=== PATIENT | female | born 1990 | race Caucasian/White ===

== ENCOUNTER 2024-11-15 08:57 | Inpatient (IN) ==
[2024-11-15] MEDS: LACTATED RINGER'S 1,000 ML IV PRN (09:15)
[2024-11-15 09:29] LABS: Hematocrit (blood only) 32.8 % (37.0-47.0); Hemoglobin 11.4 g/dl (12.0-16.0); Mean Corpuscular Hemoglobin 32.0 pg (25.0-34.0); Mean Corpuscular Volume 92.1 fL (80.0-100.0); Platelet Count 244 K/uL (130-400); RDW Standard Deviation 43.1 fL (36.4-46.3); Red Blood Count 3.56 M/uL (4.20-5.40); White Blood Count 11.25 K/ul (4.8-10.8)
[2024-11-15] MEDS: OXYTOCIN 30 UNITS/NSS 30 UNITS/500 ML BAG IV PRN (09:55)
[2024-11-15] MEDS: LIDOCAINE 1% LOCAL 20 ML VIAL INFIL PRN (10:02)
[2024-11-15] MEDS: BUPIVACAINE 0.25% PF 30 ML VIAL ONE (10:07)
[2024-11-15] MEDS: SODIUM CHLORIDE 0.9% PF INJ 10 ML VIAL ONE (10:08)
[2024-11-15] MEDS: fentANYL 2 MCG/ML BUPIVacaine 0.125%-NSS 100ML BAG ONE (10:08)
[2024-11-15] MEDS: LIDOCAINE 2%/EPINEPHRINE 1:200,000 20 ML PF ONE (10:08)
--- NOTE | 2024-11-15 10:18 | Delivery Summary ---
Vaginal Delivery Summary Date of Service November 15, 2024 Vaginal Delivery Summary () live male NARENDRA with delayed cord clamping and Apgars 8/9 weight 8 lbs. 13 oz. cord blood obtained followed by spontaneous delivery of intact placenta. Small first degree vaginal tear repaired with 3/0 Vicryl suture and 1% Lidocaine local given. QBL 55 mi. Final sponge, needle and instrument counts are correct. Mom and baby stable.
[2024-11-15] MEDS: IBUPROFEN 600 MG TAB PO ONE (10:32)
[2024-11-15] MEDS ORDERED: OXYTOCIN 30 UNITS/NSS 30 UNITS/500 ML BAG IV PRN (10:56)
[2024-11-15] MEDS ORDERED: ACETAMINOPHEN 325 MG TAB PO PRN (10:56)
[2024-11-15] MEDS ORDERED: HYDROCORTISONE ACETATE 25 MG SUPP PR PRN (10:56)
[2024-11-15] MEDS: BENZOCAINE 20% SPRY 85 APPLN/85 GM CAN EXT PRN (15:08)
[2024-11-15] MEDS: DIPHTHER/TETAN/PERTUS Vaccine (Tdap, Adol/Adult) 0.5mL IM ONE (19:13)
[2024-11-15] MEDS: DOCUSATE SODIUM 100 MG CAP PO SCH (21:09)
[2024-11-16] MEDS: IBUPROFEN 600 MG TAB PO PRN (01:05)
[2024-11-16 07:41] LABS: Hematocrit (blood only) 31.4 % (37.0-47.0); Hemoglobin 10.7 g/dl (12.0-16.0); Mean Corpuscular Hemoglobin 32.3 pg (25.0-34.0); Mean Corpuscular Volume 94.9 fL (80.0-100.0); Platelet Count 212 K/uL (130-400); RDW Standard Deviation 44.8 fL (36.4-46.3); Red Blood Count 3.31 M/uL (4.20-5.40); White Blood Count 12.26 K/ul (4.8-10.8)
--- NOTE | 2024-11-16 08:40 | Obstetrical Progress Note ---
Date of Service November 16, 2024 Assessment & Plan Admission and Anticipated Discharge Date Admission Date: November 15, 2024 Subjective Patient is seen and examined. She feels well, no complaints. Ambulating without dizziness Voiding without difficulty Tolerating regular diet with out N&V Bleeding is minimal No fever/ chills/ CP/ SOB/ N&V/ Leg pain Breast feeding without problems Vital Signs Temp Pulse Resp BP Pulse Ox O2 Del Method 11/16/24 04:18 36.6 C 74 16 124/78 98 Room Air 11/15/24 23:14 36.7 C 69 18 127/82 96 Room Air Lab Results 11/15/24 11/16/24 Range/Units 09:16 07:03 WBC 11.25 H 12.26 H (4.8-10.8) K/ul RBC 3.56 L 3.31 L (4.20-5.40) M/uL Hgb 11.4 L 10.7 L (12.0-16.0) g/dl Hct 32.8 L 31.4 L (37.0-47.0) % MCV 92.1 94.9 (80.0-100.0) fL MCH 32.0 32.3 (25.0-34.0) pg MCHC 34.8 34.1 (32.0-36.0) g/dL RDW Std Deviation 43.1 44.8 (36.4-46.3) fL RDW Coeff of Carissa 12.8 13.1 (11.5-14.5) % Plt Count 244 212 (130-400) K/uL MPV 9.7 10.1 (9.4-12.4) fL Treponema pallidum Ab Negative (Negative) Blood Type A Positive Antibody Screen NEGATIVE PE: General: Alert, orientedx3, NAD Abd: soft, NT, fundus firm, below Umbilicus Perineum intact, Lochia rubra minimal Ext; NT, no edema AP: 34 yo s/p / , ppd# 1 VSS Afebrile doing well Continue routine care All questions were answered Desires to be discharged on ppd# 2. D/C home tomorrow Results & Data Vital Signs (Past 12 Hours) Vital Signs Temp Pulse Resp BP Pulse Ox O2 Del Method 11/16/24 04:18 36.6 C 74 16 124/78 98 Room Air 11/15/24 23:14 36.7 C 69 18 127/82 96 Room Air
[2024-11-16] MEDS ORDERED: NON-FORMULARY MEDICATION (Prenatal Vit No.130-Iron-Folic [Prenatal Vitamin] 27 mg iron- 80 PO SCH (09:00)
[2024-11-16] MEDS ORDERED: NON-FORMULARY MEDICATION (Ferrous Sulfate [Iron (Ferrous Sulfate)] 325 mg (65 mg iron) Tab PO SCH (09:00)
[2024-11-16] MEDS: FERROUS SULFATE 325 MG TAB PO SCH (09:20)
[2024-11-16] MEDS: PRENATAL VITAMIN 1 TAB PO SCH (09:20)
[2024-11-17 03:49] VITALS: TEMP 98.1
[2024-11-17 07:29] VITALS: RESP 18; O2SAT 96
[2024-11-17 07:57] LABS: Hematocrit (blood only) 35.8 % (37.0-47.0); Hemoglobin 12.4 g/dl (12.0-16.0)
--- NOTE | 2024-11-17 08:44 | Obstetrical Progress Note ---
Date of Service November 17, 2024 Assessment & Plan Admission and Anticipated Discharge Date Admission Date: November 15, 2024 Subjective Patient is seen and examined. She feels well, no complaints. Ambulating without dizziness Voiding without difficulty Tolerating regular diet with out N&V Bleeding is minimal No fever/ chills/ CP/ SOB/ N&V/ Leg pain Breast feeding without problems Vital Signs Temp Pulse Resp BP BP Pulse Ox O2 Del Method 11/17/24 07:28 36.7 C 76 18 124/82 96 Room Air 11/17/24 03:40 36.7 C 63 16 108/70 95 Room Air 11/16/24 19:18 36.5 C 86 18 118/76 96 Room Air 11/16/24 16:30 36.9 C 88 16 133/88 98 Room Air 11/16/24 09:00 36.8 C 77 18 127/88 99 Room Air Vital Signs Temp Pulse Resp BP BP Pulse Ox O2 Del Method 11/17/24 07:28 36.7 C 76 18 124/82 96 Room Air 11/17/24 03:40 36.7 C 63 16 108/70 95 Room Air Lab Results 11/15/24 11/16/24 11/17/24 Range/Units 09:16 07:03 07:18 WBC 11.25 H 12.26 H (4.8-10.8) K/ul RBC 3.56 L 3.31 L (4.20-5.40) M/uL Hgb 11.4 L 10.7 L 12.4 (12.0-16.0) g/dl Hct 32.8 L 31.4 L 35.8 L (37.0-47.0) % MCV 92.1 94.9 (80.0-100.0) fL MCH 32.0 32.3 (25.0-34.0) pg MCHC 34.8 34.1 (32.0-36.0) g/dL RDW Std Deviation 43.1 44.8 (36.4-46.3) fL RDW Coeff of Carissa 12.8 13.1 (11.5-14.5) % Plt Count 244 212 (130-400) K/uL MPV 9.7 10.1 (9.4-12.4) fL Treponema pallidum Ab Negative (Negative) Blood Type A Positive Antibody Screen NEGATIVE PE: General: Alert, orientedx3, NAD Abd: soft, NT, fundus firm, below Umbilicus Perineum intact, Lochia rubra minimal Ext; NT, no edema AP: 34 yo s/p , ppd# 2 VSS Afebrile doing well Continue routine care All questions were answered D/C home , f/u in office Results & Data Vital Signs (Past 12 Hours) Vital Signs Temp Pulse Resp BP BP Pulse Ox O2 Del Method 11/17/24 07:28 36.7 C 76 18 124/82 96 Room Air 11/17/24 03:40 36.7 C 63 16 108/70 95 Room Air
[2024-11-17 11:02] VITALS: BP 108/70; PULSE 74
--- NOTE | 2024-11-21 07:20 | Coding Query ---
CODING QUERY To promote full compliance with coding requirements relating to patient care, provider participation is requested in all cases of political aide uncertainty. Please assist us with the question(s) below: Coding Question(s): This query was originally placed to Dr. Wood, but he will be out until next Tuesday, so your help would be greatly appreciated in order to answer the below question needed in order to code the visit correctly. Please specify below, the weeks of gestation of the upon admission: ( [id number] ) Weeks of gestation of on admission specified: Please Specify the number of weeks of gestation: ( ) Weeks of gestation of on admission Unknown Physician's Response(s): Thank you Екатерина Rangel Principal Diagnosis: "that condition established after study, to be chiefly responsible for occasioning the admission of the patient to the hospital for care." Co-Existing Principal Diagnosis: "when two or more diagnoses equally meet the criteria for principal diagnosis as determined by the circumstances of admission, diagnostic work up, and/or therapy provided, and the Alphabetic Index, Tabular List, or another coding guideline does not provide sequencing direction, any one of the diagnoses may be sequenced first." "When the physician has documented what appears to be a current diagnosis in the body of the record, but has not included the diagnosis in the final diagnostic statement, the physician should be asked whether the diagnosis should be added." (Source [facility]oding [facility] 2 QTR90. p3-4) JERARDO
== END 2024-11-17 14:30 | disposition home or self-care (01) | DRG 807 ==
LOC: OPB 08:57 → 4S1 09:01 → 4E2 12:57